=== PATIENT | male | born 1975 | race Caucasian/White ===

== ENCOUNTER → 2020-01-04 | Outpatient (CLI) | payer OTHER ==
[2020-01-04 17:15] LABS: African American GFR (CKD) 75.8 (60.0-200.0); Anion Gap 10.5 mmol/L (4.00-12.00); BUN/Creat Ratio 13.85 Ratio (12.00-20.00); Carbon Dioxide 25.5 mmol/L (21.6-31.8); Chol/HDL Ratio 4.05; LDL Cholesterol,Calculated 91.8 mg/dL (0.0-131.0); Magnesium 2.2 mg/dL (1.5-2.4); Non-African American GFR(CKD) 65.4 (60.0-200.0); Potassium 4.8 mmol/L (3.5-5.5); VLDL Calculation 42.2 mg/dL (5.00-40.00)
== END | disposition home or self-care (01) ==
LOC: LABWHC1 08:16
PROVIDERS: ATTEND Nurse Practitioner
DX: E78.2 Mixed hyperlipidemia (principal); Z82.49 Family history of ischemic heart disease and other diseases of the circulatory system
CPT/HCPCS: 36415; 80048; 80061; 83735; 84450; 84460

== ENCOUNTER → 2020-08-20 | Outpatient (CLI) | payer OTHER ==
[2020-08-20 11:13] LABS: HCT 50.9 % (39.0-53.0); HGB 17.3 gm/dL (13.0-17.5); MCH 30.6 pg (25.0-35.0); MCHC 34.1 g/dL (31.0-37.0); MCV 89.8 fL (80.0-100.0); Mean Platelet Volume 7.3; Platelet Count 243 k/uL (150-450); RBC 5.67 m/uL (4.30-5.90); RDW 12.5 % (11.5-15.5); WBC 6.7 k/uL (3.8-10.6)
[2020-08-20 14:57] LABS: African American GFR (CKD) 83.5 (60.0-200.0); Anion Gap 7.8 mmol/L (4.00-12.00); BUN/Creat Ratio 16.67 Ratio (12.00-20.00); Calcium 9.6 mg/dL (8.7-10.3); Carbon Dioxide 28.2 mmol/L (21.6-31.8); Chol/HDL Ratio 4.56; LDL Cholesterol,Calculated 132.4 mg/dL (0.0-131.0); Magnesium 2.1 mg/dL (1.5-2.4); Non-African American GFR(CKD) 72.1 (60.0-200.0); Potassium 4.7 mmol/L (3.5-5.5); VLDL Calculation 38.6 mg/dL (5.00-40.00)
[2020-08-20 21:11] LABS: Hemoglobin A1C 5.5 % (4.0-6.0)
== END | disposition home or self-care (01) ==
LOC: LABWHC1 09:54
PROVIDERS: ATTEND Nurse Practitioner
DX: I10 Essential (primary) hypertension (principal); E78.00 Pure hypercholesterolemia, unspecified; Z82.49 Family history of ischemic heart disease and other diseases of the circulatory system
CPT/HCPCS: 36415; 80048; 80061; 82306; 83036; 83735; 84439; 84443; 84450; 84460; 85027

== ENCOUNTER 2021-09-28 16:29 | Emergency (ER) | payer OTHER ==
--- NOTE | 2021-09-28 17:27 | ED ---
General Adult HPI <Derrick Ramos - Last Filed: 09/28/21 17:28> <Dori Paige - Last Filed: 09/29/21 02:04> - General Stated complaint: Covid+/antibodies, SOB - History of Present Illness Initial comments: Pt seen for advanced triage purposes: 45-year-old male presents to the emergency department for a chief complaint of COVID-19. Patient has had symptoms for 8 days. He tested positive 7 days ago. he has had some weakness and loss of appetite. He's had some nausea vomiting diarrhea as well. Slight shortness of breath and headache. Home O2 has stayed around 94%. Patient was hoping to get antibody infusion and some fluids. Patient did not get vaccinated for COVID. Patient has no other complaints at this time including chest pain, abdominal pain, or visual changes. (Derrick Ramos) - Related Data Previous Rx's Medication Instructions Recorded Budesonide [Pulmicort] 1 mg INHALATION BID #60 ml 09/28/21 Dexamethasone 6 mg PO DAILY #9 tablet 09/28/21 Ipratropium-Albuterol Nebulize 3 ml INHALATION Q4H PRN #90 ml 09/28/21 [Duoneb 0.5 mg-3 mg/3 ml Soln] guaiFENesin-DM 600/30MG [Mucinex 2 each PO Q12HR PRN #20 tab 09/28/21 Dm] Allergies Allergy/AdvReac Type Severity Reaction Status Date / Time No Known Allergies Allergy Verified 09/28/21 17:32 Review of Systems ROS Other: All systems not noted in ROS Statement are negative. <Derrick Ramos - Last Filed: 09/28/21 17:28> ROS Other: All systems not noted in ROS Statement are negative. <Dori Paige - Last Filed: 09/29/21 02:04> ROS Statement: Those systems with pertinent positive or pertinent negative responses have been documented in the HPI. General Exam General appearance: alert, in no apparent distress Head exam: Present: atraumatic Eye exam: Present: normal appearance, PERRL, EOMI. Absent: scleral icterus, conjunctival injection ENT exam: Present: normal exam, mucous membranes moist Neck exam: Present: normal inspection, full ROM. Absent: tenderness Respiratory exam: Present: normal lung sounds bilaterally. Absent: respiratory distress, wheezes Cardiovascular Exam: Present: regular rate, normal rhythm, normal heart sounds <Derrick Ramos - Last Filed: 09/28/21 17:28> Course <Dori Paige - Last Filed: 09/29/21 02:04> Vital Signs 09/28/21 09/28/21 09/28/21 17:27 20:00 22:22 Temperature 99.0 F Pulse Rate 95 94 Respiratory 20 20 22 Rate Blood Pressure 134/87 O2 Sat by Pulse 94 L 90 L Oximetry 09/28/21 23:01 Temperature 98.2 F Pulse Rate 96 Respiratory 20 Rate Blood Pressure 136/78 O2 Sat by Pulse 91 L Oximetry - Reevaluation(s) Reevaluation #1: 09/28/21 19:41 Patient was brought back to room #33. Did reevaluate the patient. He is in no respiratory distress at this time. Does report feeling quite nauseated, has a headache. Physical exam was unremarkable, lungs are clear to auscultation. I did order the monoclonal antibody infusion. He will be retested for COVID-19 for verification. IV was inserted he'll be given some medications for symptoms. Will continue to monitor. (Dori Paige) Medical Decision Making - Radiology Data Radiology results: report reviewed, image reviewed <Dori Paige - Last Filed: 09/29/21 02:04> - Medical Decision Making 45-year-old male patient presented for evaluation of cough, chest tightness, shortness of breath, headache, body aches. He tested positive for cold it on a home test on Wednesday. Had been having symptoms for the last 9 days. Physical examination did reveal clear equal lung sounds. He is in no respiratory distress. Abdomen soft and nontender. He was given monoclonal antibody infusion IV Toradol, Decadron, and Zofran. Also given Benadryl and IV fluids. Upon reevaluation states he feels slightly improved still reports headache. He is given additional pain medication. He did have oxygen saturation around 90- 91% on room air after ambulating. I did discuss findings of his chest x-ray with him which included significant viral pneumonia. He will be continued on dexamethasone, given DuoNeb treatments, and Pulmicort treatments for home. He is instructed to return should his breathing get worse. He does have an pulse ox is instructed to return if his oxygen saturations were persistently in the 80s. Return parameters were discussed in detail he agrees with this plan. Case discussed with my attending Dr. Arnold. (Dori Paige) - Lab Data Lab Results 09/28/21 Range/Units 19:56 Coronavirus (PCR) Detected A (Not Detectd) - Radiology Data 2 views of the chest are obtained. Report was reviewed in its entirety. Impression by Dr. Santo shows extensive pulmonary interstitial pneumonia. There is some air space component. (Dori Paige) Disposition <Derrick Ramos - Last Filed: 09/28/21 17:28> Is patient prescribed a controlled substance at d/c from ED?: No Time of Disposition: 22:30 <Dori Paige - Last Filed: 09/29/21 02:04> Clinical Impression: Pneumonia due to COVID-19 virus Disposition: HOME SELF-CARE Condition: Good Instructions (If sedation given, give patient instructions): Coronavirus Disease 2019 (COVID-19), Viral Pneumonia (ED) Additional Instructions: Tips to help you feel better: -Maintain adequate fluid intake - especially water. -Rest, you are healing your body will require extra sleep. -Eat even if you do not feel like it - broth, jello, toast are fine if you cannot eat full meals. -Take tylenol and motrin alternating (if you have no allergies or have not been instructed to avoid these medications) to help with body aches and fevers. -Obtain over the counter vitamin C, zinc, and vitamin D3. -Take medications as prescribed. Follow-up with your primary care physician for recheck in 1-2 days. Return for any new, worsening, or concerning symptoms. Prescriptions: Dexamethasone 6 mg PO DAILY #9 tablet Ipratropium-Albuterol Nebulize [Duoneb 0.5 mg-3 mg/3 ml Soln] 3 ml INHALATION Q4H PRN #90 ml PRN Reason: Wheezing/Shortness of breath guaiFENesin-DM 600/30MG [Mucinex Dm] 2 each PO Q12HR PRN #20 tab PRN Reason: Cough Budesonide [Pulmicort] 1 mg INHALATION BID #60 ml Referrals: Chantelle Lopez, [Primary Care Provider] - 1-2 days
[2021-09-28] MEDS ORDERED: SODIUM CHLORIDE 0.9% 1,000 ML IV STA (17:28)
--- NOTE | 2021-09-28 18:07 | XR ---
EXAMINATION TYPE: XR chest 2V DATE OF EXAM: 09/28/2021 COMPARISON: NONE HISTORY: Pneumonia. Cough TECHNIQUE: 2 views FINDINGS: There is coarse extensive pulmonary interstitial infiltrate. Heart size is normal. There is no pleural effusion. Bony thorax is intact. IMPRESSION: Extensive pulmonary interstitial pneumonia. There is also some airspace component.
[2021-09-28] MEDS ORDERED: DEXAMETHASONE SOD PHOSPHATE 10 MG/ML 1 ML VIAL IVP STA (19:35)
[2021-09-28] MEDS ORDERED: diphenhydrAMINE 50 MG/ML 1 ML VIAL IVP STA (19:35)
[2021-09-28] MEDS ORDERED: KETOROLAC 30 MG/ML 1 ML VIAL IVP STA (19:35)
[2021-09-28] MEDS ORDERED: ONDANSETRON 4 MG/2 ML VIAL IVP STA (19:35)
[2021-09-28] MEDS ORDERED: SODIUM CHLORIDE 0.9% 50 ML IVPB ONE (20:00)
[2021-09-28] MEDS ORDERED: CASIRIVIMAB (REGN10933) (EUA) 600 MG, IMDEVIMAB (REGN10987) (EUA) 600 MG in SODIUM CHLO... IVPB ONE (20:00)
[2021-09-28] MEDS ORDERED: MORPHINE SULFATE 4 MG/ML SYRINGE IVP STA (22:28)
[2021-09-28 23:02] VITALS: BP 136/78; PULSE 96; RESP 20; TEMP 98.2
== END 2021-09-28 23:01 | disposition home or self-care (01) ==
LOC: EC 16:29
DX: U07.1 COVID-19 (principal); J12.82 Pneumonia due to coronavirus disease 2019
CPT/HCPCS: 87635; 71046; 99285; 96374; 96375 ×4; 96361; J2270; J1200; J1100; J2405; J1885; Q0243

== ENCOUNTER → 2022-09-09 | Outpatient (CLI) | payer OTHER ==
--- NOTE | 2022-09-09 11:03 | CT ---
EXAMINATION TYPE: CT abdomen pelvis wo/w con DATE OF EXAM: 09/09/2022 COMPARISON: None HISTORY: Left sided abdominal pain, Unspecified abdominal pain CT DLP: 2640 mGycm CONTRAST: CT scan of the abdomen and pelvis is performed with Oral Contrast and without and with IV Contrast, p atient injected with 70 ml mL of Isovue 300. FINDINGS: LUNG BASES-: No visible nodule. No infiltrate. LIVER/GB: The gallbladder is surgically absent. No space occupying hepatic lesion. Biliary tree is of normal caliber. PANCREAS: No inflammation. No distinct mass. SPLEEN: No splenic enlargement. No lesion seen. ADRENALS: No nodule. No thickening. KIDNEYS/BLADDER: No hydronephrosis. No nephrolithiasis. No distinct renal mass. Urinary bladder g rossly unremarkable. BOWEL: Normal appendix. Normal bowel caliber. No inflammation. GENITAL ORGANS: No gross abnormality. LYMPH NODES: No greater than 1cm abdominal or pelvic lymph nodes are appreciated. AORTA: No significant abnormality. OSSEOUS STRUCTURES: No significant abnormality is seen. OTHER: No significant additional abnormality is seen. IMPRESSION: 1. No significant abnormality to account for the patient's symptoms.
== END | disposition home or self-care (01) ==
LOC: RADCTMAIN 08:46
PROVIDERS: ATTEND Internal Medicine Gastroenterology
DX: R10.9 Unspecified abdominal pain (principal)
CPT/HCPCS: 74178; 36415; Q9967

== ENCOUNTER → 2023-05-03 | Outpatient (CLI) | payer OTHER ==
--- NOTE | 2023-05-03 12:35 | CT ---
EXAMINATION TYPE: CT abdomen pelvis wo/w con DATE OF EXAM: 05/03/2023 COMPARISON: 09/09/2022 HISTORY: abd pain CT DLP: 2485 mGycm Automated exposure control for dose reduction was used. CONTRAST: CT scan of the abdomen pelvis is performed with IV Contrast, patient injected with 100 mL of Isovue 3 00. FINDINGS- LUNG BASES- No significant abnormality is appreciated. Trace of pericardial fluid noted. LIVER/GB- there is mild reduced attenuation of liver suggestive of hepatic steatosis. Postcholecyst ectomy changes are seen. PANCREAS- No gross abnormality is seen. SPLEEN- spleen normal in size. There is a 2 mm hypodensity within the spleen too small to characteri ze. ADRENALS- No gross abnormality is seen. KIDNEYS/BLADDER- no hydronephrosis or nephrolithiasis. Subcentimeter hypodensity within the right kid liliya too small to characterize but statistically most likely related to a cyst.. BOWEL- nonspecific bowel gas pattern with no evidence of obstruction. Small hiatal hernia. Diverticu losis with no CT evidence of diverticulitis. There is short segmental localized narrowing of the righ t colon and cecum which could be related to peristalsis. Recommend consideration for colonoscopy to e xclude other etiologies including a mucosal lesion. Appendix normal. LYMPH NODES- No greater than 1cm abdominal or pelvic lymph nodes are appreciated. OSSEOUS STRUCTURES- No significant abnormality is seen. OTHER- there is degenerative disc disease with retrolisthesis of L5 relative to S1. Aorta of normal caliber. IMPRESSION- 1. There is circumferential localized wall thickening involving the right colon near the level of the cecum. This could be related to transient peristalsis. Recommend colonoscopy to exclude possibility of mucosal lesion if patient symptomatic. 2. Mild hepatic steatosis with postcholecystectomy changes. No biliary obstruction. 3. Small hiatal hernia.
== END | disposition home or self-care (01) ==
LOC: RADCTMAIN 10:19
PROVIDERS: ATTEND Internal Medicine Gastroenterology
DX: K76.0 Fatty (change of) liver, not elsewhere classified (principal); K44.9 Diaphragmatic hernia without obstruction or gangrene; K63.89 Other specified diseases of intestine
CPT/HCPCS: 74178; Q9967